=== PATIENT | male | born 1980 | race Caucasian/White ===

== ENCOUNTER → 2023-12-02 06:56 | Outpatient (REF) | payer BC, SELFPAY | LOC: HWRAD 06:56 | PROVIDERS: ATTENDING PHYSICIAN Internal Medicine | DX: I10 Essential (primary) hypertension (principal) | CPT/HCPCS: 76700 ==

== ENCOUNTER → 2024-11-11 07:00 | Outpatient (REF) | payer BC, SELFPAY ==
[2024-11-11 09:57] LABS: % Basophils 0.9 % (0-2); % Eosinophils 5.2 % (0-6); % Immature Granulocytes 0.3 % (0-0.5); % Lymphocytes 32.9 % (20.5-51.1); % Monocytes 4.7 % (1.7-9.3); Absolute Basophils 0.1 10^3/uL (0-0.2); Absolute Eosinophils 0.3 10^3/uL (0-0.7); Absolute Lymphocytes 2.1 10^3/uL (1.2-3.4); Absolute Monocytes 0.3 10^3/uL (0.1-0.6); Absolute Neutrophils 3.6 10^3/uL (1.4-6.5); Hematocrit 45.6 % (39.0-52.0); Hemoglobin 15.5 g/dL (13.0-18.0); Mean Corpuscular Volume 85.2 fL (80.0-94.0); Nucleated Red Blood Cells % 0 % (-); Platelet Count 269 10^3/uL (130-400); Red Blood Cell Count 5.35 10^6/uL (4.70-6.10); Red Cell Dist. Width 12.7 % (11.5-14.5); White Blood Cell Count 6.4 10^3/uL (4.8-10.8)
[2024-11-11 10:20] LABS: ALT (SGPT) 54 U/L (0-50); AST (SGOT) 35 U/L (17-59); Albumin 3.8 g/dl (3.5-5.0); Alkaline Phosphatase 46 U/L (38-126); Blood Urea Nitrogen 13 mg/dl (9-20); Calcium 9.1 mg/dl (8.4-10.2); Carbon Dioxide 25 mmol/L (22-30); Chloride 102 mmol/L (98-107); Glucose 100 mg/dl (70-99); HDL Cholesterol 34 mg/dl; LDL Cholesterol, Calculated 74 mg/dl; Potassium 4.2 mmol/L (3.5-5.1); Sodium 136 mmol/L (135-145); Total Bilirubin 0.5 mg/dl (0.2-1.3); Total Cholesterol 129 mg/dl (50-199); Total Protein 6.7 g/dl (6.3-8.2); Triglyceride 107 mg/dl (10-149); Very Low Density Lipoprotein 21 mg/dl (0-30); eGFR > 60.00
[2024-11-11 11:13] LABS: Glycohemoglobin (HgbA1c) 5.5 % (4.0-5.6)
[2024-11-11 11:46] LABS: PSA, Total - Screen 0.64 ng/ml (0.0-4.0); TSH Reflex To Free T4 0.96 uIU/ml (0.47-4.68)
== END ==
LOC: HWLAB 07:00
PROVIDERS: ATTENDING PHYSICIAN Internal Medicine
DX: I10 Essential (primary) hypertension (principal); K76.0 Fatty (change of) liver, not elsewhere classified; R73.03 Prediabetes; R06.83 Snoring
CPT/HCPCS: 36415; 80053; 80061; 83036; 84443; 85025; G0103

== ENCOUNTER → 2025-06-17 06:30 | Outpatient (REF) | payer BC, SELFPAY ==
[2025-06-17 09:57] LABS: Hematocrit 49.2 % (39.0-52.0); Hemoglobin 16.7 g/dL (13.0-18.0); Mean Corp Hgb Conc. 33.9 g/dL (33.0-37.0); Mean Corpuscular Volume 85.3 fL (80.0-94.0); Nucleated Red Blood Cells % 0 % (-); Platelet Count 261 10^3/uL (130-400); Red Cell Dist. Width 12.6 % (11.5-14.5)
[2025-06-17 10:08] LABS: ALT (SGPT) 62 U/L (0-50); AST (SGOT) 37 U/L (17-59); Albumin 4.2 g/dl (3.5-5.0); Alkaline Phosphatase 37 U/L (38-126); Blood Urea Nitrogen 13 mg/dl (9-20); Calcium 9.2 mg/dl (8.4-10.2); Carbon Dioxide 27 mmol/L (22-30); Chloride 103 mmol/L (98-107); Glucose 92 mg/dl (70-99); HDL Cholesterol 45 mg/dl; LDL Cholesterol, Calculated 96 mg/dl; Potassium 4.2 mmol/L (3.5-5.1); Sodium 138 mmol/L (135-145); Total Protein 7.1 g/dl (6.3-8.2); Very Low Density Lipoprotein 27 mg/dl (0-30); eGFR > 60.00
[2025-06-17 11:16] LABS: Glycohemoglobin (HgbA1c) 5.7 % (4.0-5.9)
== END ==
LOC: HWLAB 06:30
PROVIDERS: ATTENDING PHYSICIAN Internal Medicine
DX: I10 Essential (primary) hypertension (principal); K76.0 Fatty (change of) liver, not elsewhere classified; R73.03 Prediabetes; R06.83 Snoring; Z12.5 Encounter for screening for malignant neoplasm of prostate; Z00.00 Encounter for general adult medical examination without abnormal findings
CPT/HCPCS: 36415; 80053; 80061; 83036; 84443; 85025